=== PATIENT | male | born 1995 | race Caucasian/White ===

== ENCOUNTER 2020-08-11 17:35 | Outpatient (REF) | payer MEDICARE, MEDICAID, SELFPAY | END 2020-08-11 17:36 | disposition home or self-care (01) | LOC: HO.LAB 17:35 | PROVIDERS: Visit Provider Internal Medicine | DX: Z20.828 Contact with and (suspected) exposure to other viral communicable diseases (principal) | CPT/HCPCS: C9803; U0003 ==

== ENCOUNTER 2020-08-17 15:12 | Emergency (ER) | payer MEDICARE, MEDICAID, SELFPAY ==
--- NOTE | 2020-08-17 17:11 | PC.NURSE ---
TRAVIS FROM CARE TEAM SPOKE WITH PT IN THE WR AND PROVIDED HIM RESOURCES FOR THERAPIST
== END 2020-08-17 18:22 | disposition left against medical advice (07) ==
LOC: HO.ED 18:13
PROVIDERS: Emergency Provider Emergency Medicine
DX: F41.1 Generalized anxiety disorder (principal); F43.0 Acute stress reaction

== ENCOUNTER 2020-08-27 19:22 | Emergency (ER) | payer MEDICARE, MEDICAID, SELFPAY ==
[2020-08-27 20:00] VITALS: BP 142/66; PULSE 88; RESP 16; TEMP 36.6; O2SAT 99
[2020-08-27 21:35] VITALS: BP 115/67; PULSE 97; RESP 16; TEMP 37.3; O2SAT 97; BMI 24.3
--- NOTE | 2020-08-27 22:24 | ECG_ITS ---
Test Reason : CHEST PAIN Blood Pressure : / mmHG Vent. Rate : 108 BPM Atrial Rate : 108 BPM P-R Int : 114 ms QRS Dur : 080 ms QT Int : 310 ms P-R-T Axes : 070 040 056 degrees QTc Int : 415 ms Sinus tachycardia Otherwise normal ECG When compared with ECG of 07-MAR-2020 00:17, Vent. rate has increased BY 52 BPM Referred By: Lianna Rdz Electronically Signed By:Wang Ochoa
--- NOTE | 2020-08-27 22:25 | XR_ITS ---
EXAMINATION: XR CHEST CLINICAL INFORMATION: Shortness of breath COMPARISON: Chest x-ray 08/14/2012 TECHNIQUE: 2 views of the chest were obtained. 2235 hours FINDINGS: No significant abnormality is noted involving the heart, lungs, mediastinum, bony thorax or soft tissues. XR/XR chest 2V IMPRESSION: Unremarkable examination.
--- NOTE | 2020-08-27 22:31 | ED.GENADULT ---
HPI - General Adult General Chief complaint: General Medical Stated complaint: chest pain Time Seen by Provider: 08/27/20 22:24 Source: patient Mode of arrival: ambulatory Limitations: no limitations History of Present Illness HPI narrative: 25-year-old male with no significant past medical history presenting with chest pain and shortness of breath. Patient states he has had a stressful last 6 weeks, he tested positive for COVID in July recovered well and tested negative but he says he still has some residual affects and it feels like there is a weight on his chest and he has difficulty breathing when he lays down at night. He also states he feels his heart racing at times. Patient states his symptoms have become worse since smoking marijuana last evening. He also lost a family member recently and has not been eating much. Denies fevers cough nausea vomiting diarrhea. Related Data Previous Rx's Medication Instructions Recorded hydroxyzine HCl 25 mg PO BID PRN #14 tab 08/28/20 Allergies Allergy/AdvReac Type Severity Reaction Status Date / Time No Known Allergies Allergy Verified 08/27/20 21:34 [No Known Allergies*] Review of Systems Review of Systems: Yes all other systems are reviewed and are negative FOR[facility]LY [facility] Social History Social History Advance Directives: No Advance Directives Information Provided: No Physical Exam Vital Signs: Vital Signs: Last Vital Signs Temp 99.2 F 08/27/20 21:35 Pulse 97 08/27/20 21:35 Resp 16 08/27/20 21:35 BP 115/67 08/27/20 21:35 Pulse Ox 97 08/27/20 21:35 Body Mass Index 24.3 Const: General: cooperative, healthy appearing, comfortable, well developed and anxious Orientation/consciousness: patient oriented x3 Limitations: no limitations HENMT: Head: Yes normal to inspection Eyes: General: appearance normal, both eyes and all related structures Neck: Neck: Yes normal visual inspection and Yes full ROM Resp: Effort & Inspection: normal respiratory effort and able to speak in complete sentences Auscultation: clear to auscultation bilaterally Cardio: Rate: regular rate Rhythm: regular rhythm Heart sounds: normal S1 and S2 GI: Inspection: Yes normal to inspection Palpation (GI): Soft to palpation and nontender Skin: General skin exam: no rashes or lesions noted Neuro: General: patient oriented x3 Extrem: General: Yes normal to inspection Course Course Course Narrative: A 25-year-old male with no significant past medical history complaining of chest pain and shortness of breath. Upon my exam patient appears very anxious, having experienced a in his family recently. Will get EKG, troponin and basic labs as well as a chest x-ray. This is likely anxiety and depression but will rule out cardiac or pulmonary issues 1st. Gave pt ativan, he has a ride home and is not driving. 11:45pm labs unremarkable sands a slight bump in the WBC, chemistry within normal limits, troponin negative, EKG NSR. Likely stress, anxiety and depression. Pt's HR has come down, he appears much less anxious after the ativan. Discussed results with patient, likely anxiety, he will seek counseling and follow-up care with his PCP for anxiety and/or depression. Medical Decision Making Lab Data Result diagrams: 08/27/20 22:47 08/27/20 22:47 Labs: Lab Results 08/27/20 08/27/20 08/27/20 Range/Units 22:47 22:47 22:47 WBC 13.8 H (4.8-10.8) X10*3/uL RBC 5.54 (4.60-5.80) X10*6/uL Hgb 16.5 (14.0-18.0) g/dl Hct 47.1 (42-52) % MCV 85.0 (80-98) fL MCH 29.8 (27.0-33.0) pg MCHC 35.0 (31.0-36.0) g/dl RDW 12.0 (11.0-16.0) % Plt Count 241 (160-400) X10*3/uL MPV 11.2 (9.4-12.4) fL Immature Gran % (Auto) 0.2 (0.0-0.4) % Neut % (Auto) 71.8 (45-73) % Lymph % (Auto) 21.9 (20-40) % [place] % (Auto) 5.5 (2-11) % Eos % (Auto) 0.3 (0-4) % Baso % (Auto) 0.3 (0-2) % Lymph # (Auto) 3.0 (1.2-4.9) X10*3/uL [place] # (Auto) 0.8 (0.1-1.2) X10*3/uL Eos # (Auto) 0.0 (0.0-0.4) X10*3/uL Baso # (Auto) 0.0 (0.0-0.2) X10*3/uL Abs Immat Gran (auto) 0.03 (0.00-0.03) X10*3/uL Absolute Neuts (auto) 9.9 H (2.0-8.3) X10*3/uL Absolute Nucleated RBC 0.000 (0.0-0.012) X10*3/uL Nucleated RBC % (auto) 0.0 (0.0-0.2) /100WBC Sodium 140 (135-145) mmol/L Potassium 4.0 (3.3-5.1) mmol/l Chloride 105 (96-108) mmol/L Carbon Dioxide 24 (22-29) mmol/L Anion Gap 15 (12-20) BUN 17 H (9-16) mg/dL Creatinine 1.04 (0.5-1.4) mg/dL Estim Creat Clear Calc 86.6 Estimated GFR > 60 Random Glucose 112 (60-115) mg/dL Calcium 9.6 (8.4-10.2) mg/dL Troponin I High Sens < 3.5 (<3.5-35.0) ng/L Imaging Data Chest x-ray: Attestation: I personally reviewed and interpreted this imaging study as follows: Radiologist's impression: [place] [id number] XRay Report Signed Patient: Kin AlexandreMR#: [id number] : 1995Acct:[id number] Age/Sex: 25 / MADM Date: 08/27/20 Loc: [facility].ED Attending Dr: Ordering Physician: KIRA KAPLAN Date of Service: 08/27/20 Procedure(s): XR chest 2V Accession Number(s): [id number] cc: KIRA KAPLAN~ EXAMINATION: XR CHEST CLINICAL INFORMATION: Shortness of breath COMPARISON: Chest x-ray 08/14/2012 TECHNIQUE: 2 views of the chest were obtained. 2235 hours FINDINGS: No significant abnormality is noted involving the heart, lungs, mediastinum, bony thorax or soft tissues. XR/XR chest 2V IMPRESSION: Unremarkable examination. ECG Data Attestation: I personally reviewed and interpreted this ECG as follows: Prior ECG tracings: not available for review Interpretation: Sinus tach @108, no acute changes. Discharge Plan Discharge Clinical Impression: Anxiety Chest pain Qualifiers: Chest pain type: unspecified Qualified Code(s): R07.9 - Chest pain, unspecified Patient Disposition: Home, Self-Care Instructions: Anxiety (ED) Prescriptions: New hydroxyzine HCl 25 mg tablet 25 mg PO BID PRN (Reason: anxiety) Qty: 14 RF: 0 Referrals: Name,MD Ton [Primary Care Provider] - 2 days (Please be sure to follow-up with your doctor regarding how to manage your anxiety either with therapy medication or both.)
[2020-08-27] MEDS: LORazepam 2 MG/ML VIAL 1 MG IVPUSH (22:57)
[2020-08-27 22:59] LABS: MANUAL DIFF FLAG NO
[2020-08-27 23:00] LABS: Basophils Percent Auto 0.3 % (0-2); Eosinophils Percent Auto 0.3 % (0-4); Hematocrit 47.1 % (42-52); Hemoglobin 16.5 g/dl (14.0-18.0); Imm Gran Abs Auto 0.03 X10*3/uL (0.00-0.03); Imm Gran Pct Auto 0.2 % (0.0-0.4); Lymphocytes Percent Auto 21.9 % (20-40); Mean Corpuscular Hemoglobin 29.8 pg (27.0-33.0); Mean Platelet Volume 11.2 fL (9.4-12.4); Monocytes Absolute Auto 0.8 X10*3/uL (0.1-1.2); Monocytes Percent Auto 5.5 % (2-11); Neutrophils Absolute Auto 9.9 X10*3/uL (2.0-8.3); Neutrophils Percent Auto 71.8 % (45-73); Platelet Count 241 X10*3/uL (160-400); Red Blood Count 5.54 X10*6/uL (4.60-5.80); White Blood Count 13.8 X10*3/uL (4.8-10.8)
--- NOTE | 2020-08-27 23:01 | PC.NURSE ---
PT MEDICATED FOR ANXIETY.
--- NOTE | 2020-08-27 23:01 | PC.NURSE ---
PT ON MONITOR,
[2020-08-27 23:19] LABS: Anion Gap 15 (12-20); Blood Urea Nitrogen 17 mg/dL (9-16); Calcium 9.6 mg/dL (8.4-10.2); Carbon Dioxide 24 mmol/L (22-29); Chloride 105 mmol/L (96-108); Creatinine Clr Calc Pharmacy 86.6; Estimated Glomerular Filt Rate > 60; Glucose Random 112 mg/dL (60-115); Sodium 140 mmol/L (135-145)
[2020-08-27 23:27] LABS: Troponin-I High Sensitivity < 3.5 ng/L (<3.5-35.0)
--- NOTE | 2020-08-28 00:14 | PC.NURSE ---
PA IN ROOM FOR RE-EVAL. PT GETTING READY FOR DISCHARGE.
== END 2020-08-28 01:27 | disposition home or self-care (01) ==
PROVIDERS: Physician Assistant; Emergency Provider Internal Medicine; PCP Internal Medicine Geriatric Medicine
DX: R07.9 Chest pain, unspecified (principal); F41.1 Generalized anxiety disorder; F43.0 Acute stress reaction; Z79.899 Other long term (current) drug therapy
CPT/HCPCS: 36415; 71046; 80048; 84484; 85025; 93005; 96374; 99284; J2060

== ENCOUNTER 2020-10-05 22:17 | Emergency (ER) | payer MEDICARE, MEDICAID, SELFPAY ==
--- NOTE | ~2020-10-05 | CT_ITS ---
EXAMINATION: CT ABDOMEN AND PELVIS WITHOUT CONTRAST CLINICAL INFORMATION: Epigastric pain. Acute kidney injury COMPARISON: CT scan abdomen pelvis 03/11/2020, 03/04/2020 TECHNIQUE: Multidetector volumetric imaging was performed from the superior aspect of the liver through the pubic symphysis. Sagittal and coronal reformatted images were obtained on the technologist's workstation. This CT examination was performed using dose optimization techniques as appropriate, variously including the following: *Automated exposure control *Adjustment of mA and/or kV according to patient size (this includes techniques or standardized protocols for targeted exams where dose is matched to indication/reason for exam; i.e. extremities or head) *Use of iterative reconstruction technique DLP: 388 mGy-cm FINDINGS: LUNG BASES: The visualized lung bases are unremarkable. LIVER, GALLBLADDER, AND BILIARY TREE: The liver is normal in size, shape, and attenuation. No focal suspicious hepatic lesion or biliary ductal dilatation is present. There are several scattered subcentimeter hypodensities in the liver that are stable since prior study of 03/03/2020. The gallbladder is unremarkable with no evidence of radiopaque gallstones, gallbladder wall thickening, or obvious pericholecystic inflammatory changes. PANCREAS: Unremarkable. SPLEEN: Unremarkable. ADRENAL GLANDS: Unremarkable. KIDNEYS AND URETERS: The kidneys are normal in size, shape, and attenuation. No hydronephrosis, hydroureter, or calculi seen. No perinephric stranding. BLADDER: Unremarkable. GASTROINTESTINAL TRACT: There is no acute abnormality of the bowel. There is no bowel wall thickening /edema. There is no bowel obstruction. There is a moderate volume of stool in the colon. There is oral contrast mixed with stool in the large bowel. The appendix is normal . The small bowel loops are unremarkable. The stomach is normal. There is no hiatal hernia. ABDOMINAL WALL: No significant hernia is appreciated. LYMPH NODES: Normal. VASCULAR: Unremarkable. PELVIC VISCERA: Unremarkable. OSSEOUS STRUCTURES: Unremarkable. CT/CT abdomen pelvis wo con IMPRESSION: Normal CT scan abdomen and pelvis.
[2020-10-05 22:24] VITALS: BP 146/94; PULSE 100; RESP 18; TEMP 36.8; O2SAT 98; BMI 25.3
--- NOTE | 2020-10-05 23:19 | ED_ITS ---
HPI - Abdominal Pain General Chief Complaint: Abdominal Pain Stated Complaint: Abdominal Pain Time Seen by Provider: 10/05/20 22:20 Source: patient Mode of arrival: ambulatory History of Present Illness HPI narrative: This is a 25-year-old male who presents with epigastric pain that is burning/sharp, nonradiating, in nature since after taking a packet of ?Emergency?. This is not been associated with fevers, chills, nausea, vomi ting, or diarrhea. Yesterday, patient took Pepto-Bismol and is now presenting with 2 episodes of black stool and denies any urinary pain/burning/frequency. Patient denies NSAID use. Related Data Previous Rx's Medication Instructions Recorded hydroxyzine HCl 25 mg PO BID PRN #14 tab 08/28/20 omeprazole 40 mg PO DAILY 30 Days #30 cap 10/06/20 Allergies Allergy/AdvReac Type Severity Reaction Status Date / Time No Known Allergies Allergy Verified 08/27/20 21:34 [No Known Allergies*] Review of Systems Review of Systems Pertinent positives and negatives as stated in HPI 10 point review of systems is otherwise negative. Physical Exam Vital Signs: Vital Signs: Last Vital Signs Temp 97.9 F 10/06/20 04:00 Pulse 96 10/06/20 04:00 Resp 18 10/06/20 04:00 BP 126/67 10/06/20 04:00 Pulse Ox 98 10/06/20 04:00 Body Mass Index 25.3 VITAL SIGNS: Reviewed. GENERAL: Well developed, well nourished, in no acute distress. HEAD: Normocephalic/atraumatic, EYES: PERRLA, EOMI without pallor OROPHARYNX: no oral lesions noted, posterior pharynx clear NECK: Supple, no adenopathy LUNGS: Normal breath sounds. SpO2<98> CARDIOVASCULAR: Regular rate and rhythm without noted murmurs ABDOMEN: Soft, mild tenderness palpation epigastrium without rebound, non- distended with bowel sounds. ELIU: No evidence of external hemorrhoids, firm stool in the rectal vault without gross blood on finger but stool is black in nature, good rectal tone SKIN: Inspection of the skin reveals no rashes NEUROLOGIC: Alert and oriented x 4. Course Course Course Narrative: This is a 25-year-old male with history and clinical presentation most consistent gastritis and black stool suspected to be secondary to Pepto-Bismol use. Will rule out evidence of GI bleed, and treat for gastritis. Review of all investigations negative for any acute findings other than an LEON w hich was treated here in the emergency department with 2 L of fluid in re- evaluation with the BMP. Repeat lab work showed trending improvement and on repeat discussion with patient he states only meds he takes is sertraline, trazodone, and herbal tea. Review of basic metabolic panel shows significant improvement in renal function and patient was discharged in stable condition with instructions to follow-up with his primary care provider. MDM - Abdominal Pain Lab Data Result diagrams: 10/05/20 23:33 10/06/20 03:45 Labs: Lab Results 10/05/20 10/05/20 10/05/20 Range/Units 23:31 23:33 23:33 WBC 12.9 H (4.8-10.8) X10*3/uL RBC 5.35 (4.60-5.80) X10*6/uL Hgb 15.9 (14.0-18.0) g/dl Hct 45.7 (42-52) % MCV 85.4 (80-98) fL MCH 29.7 (27.0-33.0) pg MCHC 34.8 (31.0-36.0) g/dl RDW 12.5 (11.0-16.0) % Plt Count 229 (160-400) X10*3/uL MPV 10.9 (9.4-12.4) fL Immature Gran % (Auto) 0.2 (0.0-0.4) % Neut % (Auto) 57.8 (45-73) % Lymph % (Auto) 31.8 (20-40) % [place] % (Auto) 8.8 (2-11) % Eos % (Auto) 1.0 (0-4) % Baso % (Auto) 0.4 (0-2) % Lymph # (Auto) 4.1 (1.2-4.9) X10*3/uL [place] # (Auto) 1.1 (0.1-1.2) X10*3/uL Eos # (Auto) 0.1 (0.0-0.4) X10*3/uL Baso # (Auto) 0.1 (0.0-0.2) X10*3/uL Abs Immat Gran (auto) 0.03 (0.00-0.03) X10*3/uL Absolute Neuts (auto) 7.5 (2.0-8.3) X10*3/uL Absolute Nucleated RBC 0.000 (0.0-0.012) X10*3/uL Nucleated RBC % (auto) 0.0 (0.0-0.2) /100WBC Sodium 136 (135-145) mmol/L Potassium 4.0 (3.3-5.1) mmol/L Chloride 101 (96-108) mmol/L Carbon Dioxide 25 (22-29) mmol/L Anion Gap 14 (12-20) BUN 29 H D (9-16) mg/dL Creatinine 1.48 H (0.5-1.4) mg/dL Estim Creat Clear Calc 60.8 Estimated GFR 57 Random Glucose 82 (60-115) mg/dL Calcium 9.5 (8.4-10.2) mg/dL Total Bilirubin 0.7 (0.0-1.0) mg/dL AST 22 (5-37) U/L ALT 30 (0-40) U/L Alkaline Phosphatase 78 (39-117) U/L B-Natriuretic Peptide (<100) pg/mL Total Protein 6.9 (6.5-8.0) g/dL Albumin 4.6 (3.5-5.0) g/dL Lipase 34 (8-78) U/L Urine Color Urine Appearance Urine pH (5.0-8.0) Ur Specific [place] (1.005-1.025) Urine Protein (NEG-TRACE) MG/DL Urine Glucose (UA) (NEG) MG/DL Urine Ketones (NEG) MG/DL Urine Blood (NEG) Urine Nitrite (NEG) Ur Leukocyte Esterase (NEG) Stool Occult Blood NEG (NEG) Urine Opiates Screen (Not Detect) Ur Barbiturates Screen (Not Detect) Ur Phencyclidine Scrn (Not Detect) Ur Amphetamines Screen (Not Detect) U Benzodiazepines Scrn (Not Detect) Urine Cocaine Screen (Not Detect) U Marijuana (THC) Screen (Not Detect) 10/06/20 10/06/20 10/06/20 Range/Units 00:40 00:40 03:03 WBC (4.8-10.8) X10*3/uL RBC (4.60-5.80) X10*6/uL Hgb (14.0-18.0) g/dl Hct (42-52) % MCV (80-98) fL MCH (27.0-33.0) pg MCHC (31.0-36.0) g/dl RDW (11.0-16.0) % Plt Count (160-400) X10*3/uL MPV (9.4-12.4) fL Immature Gran % (Auto) (0.0-0.4) % Neut % (Auto) (45-73) % Lymph % (Auto) (20-40) % [place] % (Auto) (2-11) % Eos % (Auto) (0-4) % Baso % (Auto) (0-2) % Lymph # (Auto) (1.2-4.9) X10*3/uL [place] # (Auto) (0.1-1.2) X10*3/uL Eos # (Auto) (0.0-0.4) X10*3/uL Baso # (Auto) (0.0-0.2) X10*3/uL Abs Immat Gran (auto) (0.00-0.03) X10*3/uL Absolute Neuts (auto) (2.0-8.3) X10*3/uL Absolute Nucleated RBC (0.0-0.012) X10*3/uL Nucleated RBC % (auto) (0.0-0.2) /100WBC Sodium (135-145) mmol/L Potassium (3.3-5.1) mmol/L Chloride (96-108) mmol/L Carbon Dioxide (22-29) mmol/L Anion Gap (12-20) BUN (9-16) mg/dL Creatinine (0.5-1.4) mg/dL Estim Creat Clear Calc Estimated GFR Random Glucose (60-115) mg/dL Calcium (8.4-10.2) mg/dL Total Bilirubin (0.0-1.0) mg/dL AST (5-37) U/L ALT (0-40) U/L Alkaline Phosphatase (39-117) U/L B-Natriuretic Peptide < 10 (<100) pg/mL Total Protein (6.5-8.0) g/dL Albumin (3.5-5.0) g/dL Lipase (8-78) U/L Urine Color YELLOW Urine Appearance CLEAR Urine pH 6.5 (5.0-8.0) Ur Specific [place] 1.020 (1.005-1.025) Urine Protein NEG (NEG-TRACE) MG/DL Urine Glucose (UA) NEG (NEG) MG/DL Urine Ketones NEG (NEG) MG/DL Urine Blood NEG (NEG) Urine Nitrite NEG (NEG) Ur Leukocyte Esterase NEG (NEG) Stool Occult Blood (NEG) Urine Opiates Screen Not Detected (Not Detect) Ur Barbiturates Screen Not Detected (Not Detect) Ur Phencyclidine Scrn Not Detected (Not Detect) Ur Amphetamines Screen Not Detected (Not Detect) U Benzodiazepines Scrn Not Detected (Not Detect) Urine Cocaine Screen Not Detected (Not Detect) U Marijuana (THC) Screen Not Detected (Not Detect) 10/06/20 Range/Units 03:45 WBC (4.8-10.8) X10*3/uL RBC (4.60-5.80) X10*6/uL Hgb (14.0-18.0) g/dl Hct (42-52) % MCV (80-98) fL MCH (27.0-33.0) pg MCHC (31.0-36.0) g/dl RDW (11.0-16.0) % Plt Count (160-400) X10*3/uL MPV (9.4-12.4) fL Immature Gran % (Auto) (0.0-0.4) % Neut % (Auto) (45-73) % Lymph % (Auto) (20-40) % [place] % (Auto) (2-11) % Eos % (Auto) (0-4) % Baso % (Auto) (0-2) % Lymph # (Auto) (1.2-4.9) X10*3/uL [place] # (Auto) (0.1-1.2) X10*3/uL Eos # (Auto) (0.0-0.4) X10*3/uL Baso # (Auto) (0.0-0.2) X10*3/uL Abs Immat Gran (auto) (0.00-0.03) X10*3/uL Absolute Neuts (auto) (2.0-8.3) X10*3/uL Absolute Nucleated RBC (0.0-0.012) X10*3/uL Nucleated RBC % (auto) (0.0-0.2) /100WBC Sodium 142 (135-145) mmol/L Potassium 3.6 (3.3-5.1) mmol/L Chloride 115 H (96-108) mmol/L Carbon Dioxide 21 L (22-29) mmol/L Anion Gap 10 L (12-20) BUN 20 H (9-16) mg/dL Creatinine 0.89 (0.5-1.4) mg/dL Estim Creat Clear Calc 101.2 Estimated GFR > 60 Random Glucose 80 (60-115) mg/dL Calcium 7.0 L D (8.4-10.2) mg/dL Total Bilirubin (0.0-1.0) mg/dL AST (5-37) U/L ALT (0-40) U/L Alkaline Phosphatase (39-117) U/L B-Natriuretic Peptide (<100) pg/mL Total Protein (6.5-8.0) g/dL Albumin (3.5-5.0) g/dL Lipase (8-78) U/L Urine Color Urine Appearance Urine pH (5.0-8.0) Ur Specific [place] (1.005-1.025) Urine Protein (NEG-TRACE) MG/DL Urine Glucose (UA) (NEG) MG/DL Urine Ketones (NEG) MG/DL Urine Blood (NEG) Urine Nitrite (NEG) Ur Leukocyte Esterase (NEG) Stool Occult Blood (NEG) Urine Opiates Screen (Not Detect) Ur Barbiturates Screen (Not Detect) Ur Phencyclidine Scrn (Not Detect) Ur Amphetamines Screen (Not Detect) U Benzodiazepines Scrn (Not Detect) Urine Cocaine Screen (Not Detect) U Marijuana (THC) Screen (Not Detect) Discharge Plan Discharge Clinical Impression: LEON (acute kidney injury) Gastritis Qualifiers: Gastritis type: unspecified gastritis Chronicity: acute Gastritis bleeding: without bleeding Qualified Code(s): K29.00 - Acute gastritis without bleeding Patient Disposition: Home, Self-Care Instructions: Gastritis (ED), Acute Kidney Injury (DC), Diet for Stomach Ulcers and Gastritis (ED) Additional Instructions: 1. Increase her fluid hydration especially with water. 2. Resume all home medications as prescribed. 3. You have been provided with a prescription for an antacid that you should take as prescribed. Prescriptions: New omeprazole 40 mg capsule,delayed release(DR/EC) 40 mg PO DAILY 30 Days Qty: 30 RF: 0 No Action hydroxyzine HCl 25 mg tablet 25 mg PO BID PRN (Reason: anxiety) Qty: 14 RF: 0 Referrals: Lauren,MD Ton [Primary Care Provider] - 2 days (For evaluation and management for gastritis and noted to have acute kidney injury of unclear etiology that improved after fluid hydration in the emergency department. Would benefit from repeat basic metabolic panel.) [facility] Past Medical History Source: nursing notes reviewed Social History Social History Advance Directives: No Advance Directives Information Provided: No
[2020-10-05 23:38] LABS: Basophils Absolute Auto 0.1 X10*3/uL (0.0-0.2); Basophils Percent Auto 0.4 % (0-2); Eosinophils Absolute Auto 0.1 X10*3/uL (0.0-0.4); Hematocrit 45.7 % (42-52); Hemoglobin 15.9 g/dl (14.0-18.0); Imm Gran Abs Auto 0.03 X10*3/uL (0.00-0.03); Imm Gran Pct Auto 0.2 % (0.0-0.4); Lymphocytes Absolute Auto 4.1 X10*3/uL (1.2-4.9); Lymphocytes Percent Auto 31.8 % (20-40); Mean Corpuscular HGB Conc 34.8 g/dl (31.0-36.0); Mean Corpuscular Hemoglobin 29.7 pg (27.0-33.0); Mean Corpuscular Volume 85.4 fL (80-98); Mean Platelet Volume 10.9 fL (9.4-12.4); Monocytes Absolute Auto 1.1 X10*3/uL (0.1-1.2); Monocytes Percent Auto 8.8 % (2-11); Neutrophils Absolute Auto 7.5 X10*3/uL (2.0-8.3); Neutrophils Percent Auto 57.8 % (45-73); Platelet Count 229 X10*3/uL (160-400); Red Blood Count 5.35 X10*6/uL (4.60-5.80); Red Cell Distribution Width 12.5 % (11.0-16.0); White Blood Count 12.9 X10*3/uL (4.8-10.8)
[2020-10-05 23:38] LABS: OBS Int Ctl Valid YES; OBS1 NEG (NEG)
[2020-10-05 23:39] LABS: MANUAL DIFF FLAG NO
[2020-10-05] MEDS: Lidocaine HCl Viscous 2 % 15 ML SOLUTION 10 ML MUCOUS MEM (23:42)
[2020-10-05] MEDS: Magnesium Hydrox/Alum Hydrox 30 ML ORAL.SUSP PO (23:42)
--- NOTE | 2020-10-05 23:45 | PC.NURSE ---
Patient attempting to provide urine specimen at this time. Labs drawn and sent for analysis. Awaiting results. Will continue to monitor.
[2020-10-06] VITALS: BP 134/69; PULSE 81; RESP 18; TEMP 36.7; O2SAT 99
[2020-10-06 00:02] LABS: Carbon Dioxide 25 mmol/L (22-29); Chloride 101 mmol/L (96-108); Sodium 136 mmol/L (135-145)
[2020-10-06 00:03] LABS: Alanine Aminotransferase 30 U/L (0-40); Albumin Level 4.6 g/dL (3.5-5.0); Alkaline Phosphatase 78 U/L (39-117); Anion Gap 14 (12-20); Aspartate Amino Transferase 22 U/L (5-37); Bilirubin Total 0.7 mg/dL (0.0-1.0); Blood Urea Nitrogen 29 mg/dL (9-16); Calcium 9.5 mg/dL (8.4-10.2); Creatinine Clr Calc Pharmacy 60.8; Estimated Glomerular Filt Rate 57; Glucose Random 82 mg/dL (60-115); Lipase 34 U/L (8-78); Total Protein 6.9 g/dL (6.5-8.0)
[2020-10-06 00:49] LABS: Glucose Urine UA NEG (NEG); Leukocyte Esterase Urine NEG (NEG); Nitrite Urine NEG (NEG); PH 6.5 (5.0-8.0); Urine Blood NEG (NEG); Urine Ketones NEG (NEG); Urine Protein NEG (NEG-TRACE)
[2020-10-06 00:50] LABS: Appearance Urine CLEAR; Color Urine YELLOW; UACC Culture Trigger NO
[2020-10-06 01:16] LABS: Amphetamine Screen Urine Not Detected (Not Detect); Barbiturates, Urine Not Detected (Not Detect); Benzodiazepines Screen Urine Not Detected (Not Detect); Cannabinoid Screen Urine Not Detected (Not Detect); Cocaine Screen Urine Not Detected (Not Detect); Opiate Screen Urine Not Detected (Not Detect); Phencyclidine Screen Urine Not Detected (Not Detect)
[2020-10-06 02:00] VITALS: BP 130/69; PULSE 78; RESP 18; TEMP 36.6; O2SAT 98
[2020-10-06] MEDS: 0.9 % Sodium Chloride 2,000 ML 999 ML IV (02:14)
[2020-10-06 03:32] LABS: B Type Natriuretic Peptide < 10 pg/mL (<100)
[2020-10-06 04:00] VITALS: BP 126/67; PULSE 96; RESP 18; TEMP 36.6; O2SAT 98
[2020-10-06 04:28] LABS: Anion Gap 10 (12-20); Blood Urea Nitrogen 20 mg/dL (9-16); Carbon Dioxide 21 mmol/L (22-29); Chloride 115 mmol/L (96-108); Creatinine Clr Calc Pharmacy 101.2; Estimated Glomerular Filt Rate > 60; Glucose Random 80 mg/dL (60-115); Potassium 3.6 mmol/L (3.3-5.1); Sodium 142 mmol/L (135-145)
== END 2020-10-06 04:56 | disposition home or self-care (01) ==
PROVIDERS: Emergency Provider Student in an Organized Health Care Education/Training Program; PCP Internal Medicine Geriatric Medicine
DX: K29.00 Acute gastritis without bleeding (principal); R10.13 Epigastric pain; Z79.899 Other long term (current) drug therapy
CPT/HCPCS: 36415; 74176; 80048; 80053; 80307; 81003; 82272; 83690; 83880; 85025; 96360; 96361; 99284

== ENCOUNTER 2020-10-08 13:03 | Outpatient (REF) | payer MEDICARE, MEDICAID, SELFPAY ==
--- NOTE | ~2020-10-08 | US_ITS ---
EXAMINATION: US SCROTUM CLINICAL INFORMATION: Scrotal pain. COMPARISON: None TECHNIQUE: A sonogram of the scrotum was performed assessing pineda-scale appearance and color Doppler flow. Spectral Doppler analysis of the arterial and venous flow were performed in the testes bilaterally. FINDINGS: RIGHT: Right testicle measures 3.7 x 2.0 x 2.7 cm, volume 10.4 mL. No focal testicular parenchymal lesions are visualized. Spectral Doppler analysis of the arterial and venous flow is normal in the right testis. Right epididymal head is normal in size. No right varicocele is seen. There is a small right hydrocele. Right epididymal Doppler flow is normal. LEFT: Left testicle measures 3.5 x 2.0 x 2.8 cm, volume 10.3 mL. No focal testicular parenchymal lesions are visualized. Spectral Doppler analysis of the arterial and venous flow is normal in the left testis. Left epididymal head is normal in size. Left epididymal Doppler flow is normal. There is a small left hydrocele. There is a small left varicocele. US/US scrotum IMPRESSION: Small bilateral hydroceles. Small left varicocele.
== END 2020-10-08 13:04 | disposition home or self-care (01) ==
LOC: HO.US 13:03
PROVIDERS: Visit Provider Emergency Medicine
DX: N50.82 Scrotal pain (principal)
CPT/HCPCS: 76870

== ENCOUNTER 2021-02-24 14:41 | Outpatient (REF) | payer MEDICARE, MEDICAID, SELFPAY ==
--- NOTE | ~2021-02-24 | XR_ITS ---
EXAMINATION: XR SHOULDER, LEFT CLINICAL INFORMATION: Pain left shoulder COMPARISON: X-ray the left shoulder May 2016 TECHNIQUE: AP external rotation, Grashey, scapular Y, and axillary views of the left shoulder. FINDINGS: The bones and soft tissues are normal. No fracture. Glenohumeral and acromioclavicular alignment is anatomic with normal joint space. No abnormal soft tissue calcifications. XR/XR shoulder LT min 2V IMPRESSION: Normal left shoulder.
== END 2021-02-24 14:42 | disposition home or self-care (01) ==
LOC: HO.XRAY 14:41
PROVIDERS: PCP Internal Medicine Geriatric Medicine; Visit Provider Emergency Medicine
DX: M25.512 Pain in left shoulder (principal)
CPT/HCPCS: 73030

== ENCOUNTER 2021-04-22 12:00 | Outpatient (RCR) | payer MEDICARE, MEDICAID, SELFPAY | END 2021-05-05 08:50 | disposition home or self-care (01) | LOC: HO.PT 12:00 | PROVIDERS: PCP Internal Medicine Geriatric Medicine; Visit Provider Emergency Medicine | DX: M25.512 Pain in left shoulder (principal) | CPT/HCPCS: 97110; 97112; 97161; 97530 ==

== ENCOUNTER 2021-11-06 15:57 | Outpatient (REF) | payer MEDICARE, MEDICAID, SELFPAY ==
--- NOTE | ~2021-11-06 | US_ITS ---
EXAMINATION: US SCROTUM CLINICAL INFORMATION: Left testicular pain. COMPARISON: Ultrasound scrotum 10/08/2020. TECHNIQUE: A sonogram of the scrotum was performed assessing pineda-scale appearance and color Doppler flow. Spectral Doppler analysis of the arterial and venous flow were performed in the testes bilaterally. FINDINGS: RIGHT: Right testicle measures 3.7 x 2.0 x 2.9 cm, volume 10.7 mL. No focal testicular parenchymal lesions are visualized. Spectral Doppler analysis of the arterial and venous flow is normal in the right testis. Right epididymal head is normal in size. No right hydrocele or varicocele is seen. Right epididymal Doppler flow is normal. LEFT: Left testicle measures 3.6 x 2.0 x 2.4 cm, volume 9.1 mL. No focal testicular parenchymal lesions are visualized. Spectral Doppler analysis of the arterial and venous flow is normal in the left testis. There is a left testicular appendix visualized. Left epididymal head is normal in size. No left hydrocele or varicocele is seen. Left epididymal Doppler flow is normal. US/US scrotum IMPRESSION: Unremarkable left ultrasound of the scrotum except for incidental finding of a left testicular appendix.
== END 2021-11-06 15:58 | disposition home or self-care (01) ==
LOC: HO.US 15:57
PROVIDERS: PCP Internal Medicine Geriatric Medicine; Visit Provider Family Medicine
DX: N50.812 Left testicular pain (principal)
CPT/HCPCS: 76870

== ENCOUNTER → 2022-01-07 08:47 | Outpatient (BNVA) | payer MEDICARE, MEDICAID, SELFPAY | PROVIDERS: PCP Internal Medicine Geriatric Medicine; Visit Provider Urology | DX: N45.1 Epididymitis (principal) | CPT/HCPCS: 99202 ==

== ENCOUNTER 2022-12-02 16:53 | Emergency (ER) | payer OTHER, MEDICAID, SELFPAY ==
--- NOTE | 2022-12-02 17:02 | ED.ABDPAIN ---
HPI - Abdominal Pain General Chief Complaint: Abdominal Pain <Cele Sandy NP - Last Filed: 12/02/22 17:06> Stated Complaint: Abd Pain <Cele Sandy NP - Last Filed: 12/02/22 17:06> Time Seen by Provider: 12/02/22 17:12 <Cele Sandy NP - Last Filed: 12/02/22 17:06> Source: patient <VICKY Jaramillo - Last Filed: 12/02/22 18:58> Mode of arrival: ambulatory <VICKY Jaramillo - Last Filed: 12/02/22 18:58> Limitations: no limitations <VICKY Jaramillo Last Filed: 12/02/22 18:58> History of Present Illness HPI narrative: Patient is a 27yo male with history of anxiety and depression for which he is not currently taking medications, presenting for abdominal burning which he stated started 1 week ago. Patient stated that he had sexual intercourse with a new partner and 6 hours after he developed a deep abdominal burning in his left lower quadrant which spread throughout his abdomen which the patient described as feels like my intestines are on fire . Patient stated that the burning sensation has been constant but fluctuates in intensity. Patient also stated that he has observed bruises on his body with no known cause, rashes appearing on his face, and chills. Patient stated he had similar symptoms as well as an episode of muscle weakness and SOB last year following sexual intercourse with new partners and was evaluated by his PCP who, according to the patient, stated it's all in your head . Patient denies previous STD testing. He endorsed nausea but denies fever, dizziness, headache, chest pain, vomiting, diarrhea, genital rashes or ulcers, hematuria, urinary retention or incontinence. Patient denies anything that exacerbates or relieves symptoms. <VICKY Jaramillo - Last Filed: 12/02/22 18:58> MD elicited complaint: abdominal pain <VICKY Jaramillo - Last Filed: 12/02/22 18:58> Pertinent past history: other (anxiety, depression) <VICKY Jaramillo Last Filed: 12/02/22 18:58> Onset (ago): day(s) (6) <VICKY Jaramillo - Last Filed: 12/02/22 18:58> Pain Consistency: constant <VICKY Jaramillo Last Filed: 12/02/22 18:58> Location: suprapubic <VICKY Jaramillo Last Filed: 12/02/22 18:58> Exacerbating factors: nothing <VICKY Jaramillo Last Filed: 12/02/22 18:58> Relieving factors: nothing <VICKY Jaramillo Last Filed: 12/02/22 18:58> Context: history of similar episodes <VICKY Jaramillo Last Filed: 12/02/22 18:58> Associated symptoms: nausea and chills <VICKY Jaramillo Last Filed: 12/02/22 18:58> Related Data Home Medications: Home Medications Medication Instructions Recorded Confirmed clindamycin phosphate 1 % lotion topical BID 01/07/22 doxycycline hyclate 100 mg tablet 100 mg PO BID 01/07/22 sertraline 25 mg tablet 25 mg PO DAILY 01/07/22 sertraline 50 mg tablet 50 mg PO DAILY 01/07/22 trazodone 100 mg tablet 100 mg PO BEDTIME 01/07/22 trazodone 50 mg tablet 50 mg PO BEDTIME 01/07/22 Previous Rx's Medication Instructions Recorded hydroxyzine HCl 25 mg tablet 25 mg PO BID PRN anxiety #14 tabs 08/28/20 omeprazole 40 mg capsule,delayed 40 mg PO DAILY 30 days #30 caps 10/06/20 release doxycycline hyclate 100 mg tablet 100 mg PO BID #14 tabs 12/02/22 <MARYSE Bañuelos Last Filed: 12/02/22 17:06> Allergies/Adverse Reactions: Allergies Allergy/AdvReac Type Severity Reaction Status Date / Time No Known Allergies Allergy Verified 12/02/22 17:03 [No Known Allergies*] <MARYSE Bañuelos Last Filed: 12/02/22 17:06> Review of Systems Review of Systems Yes all other systems are reviewed and are negative <VICKY Jaramillo Last Filed: 12/02/22 18:58> PMFSH Past Medical History Medical History: Medical History Anxiety Depression Hip abductor tendonitis <Cele Sandy NP - Last Filed: 12/02/22 17:06> Social History Social History: Social History Alcohol intake: never Advance Directives: No Advance Directives Information Provided: No <Cele Sandy NP - Last Filed: 12/02/22 17:06> Physical Exam ED Vital Signs: Vital Signs - 24 hr 12/02/22 17:03 Temperature 98.9 F Pulse Rate 99 Respiratory Rate 18 Blood Pressure 142/86 H Pulse Oximetry 100 Oxygen Delivery Method Room Air BMI result Body Mass Index 23.0 <Cele Sandy NP - Last Filed: 12/02/22 17:06> Vital Signs - 24 hr 12/02/22 17:03 Temperature 98.9 F Pulse Rate 99 Respiratory Rate 18 Blood Pressure 142/86 H Pulse Oximetry 100 Oxygen Delivery Method Room Air BMI result Body Mass Index 23.0 Appearance: Alert. Oriented X3. No acute distress. Head: normocephalic, atraumatic. Eyes: Pupils equal, round and reactive to light. ENT: Pharynx normal. No tonsillar swelling or exudate. Neck: Normal inspection. Neck supple. CVS: Normal heart rhythm with tachycardia. Pulses normal. Respiratory: No respiratory distress. Breath sounds normal. Abdomen: Soft with mild suprapubic tenderness. +BS x4 Skin: Skin warm and dry. Normal skin color. Normal skin turgor. No rashes. 2 minor bruises on patients right ventral forearm Extremities: No lower extremity edema. No joint swelling. Neuro/psych: Oriented X 3. No motor deficit. No sensory deficit. Normal speech and cognition. <VICKY Jaramillo - Last Filed: 12/02/22 18:58> Course Course Course Narrative: This is a rapid medical exam. Deferred additional HPI, ROS, and PE to primary provider. 27 yo male healthy here with complaints of generalized abdominal pain, fever, flu like symptoms x 1 week. Patient believes these symptoms began after having sexual intercourse with a new sexual partner. Denies urinary symptoms, penile discharge, urinary symptoms or testicular pain. Will obtain labs, UA, CT NG and testing for flu/covid/rsv. VSS <Cele Sandy NP - Last Filed: 12/02/22 17:06> Medical Decision Making Medical Decision Making [facility] Narrative: Patient is a 27yo male with history of anxiety and depression not currently taking medications, presenting for multiple symptoms which do not appear related. Physical exam is benign. Patient labs were unremarkable. UA unremarkable. Patient was offered STD treatment and given referral for STD testing. Patient was counseled on the need to take medication as directed. Patient was informed to follow up with his primary care and return to the ER if his symptoms worsen or he develops any fever, chest pain, SOB, weakness, fatigue, syncope, or near syncope. <VICKY Jaramillo - Last Filed: 12/02/22 18:58> Differential Diagnosis Differential Diagnoses: The differential diagnosis associated with the presentation includes <VICKY Jaramillo - Last Filed: 12/02/22 18:58> somaticism, acute anxiety, illness anxiety disorder, CTNG, UTI, doubt HIV <VICKY Jaramillo - Last Filed: 12/02/22 18:58> Lab Data [facility] Lab Attestation statement: I reviewed the patient's lab results. <VICKY Jaramillo - Last Filed: 12/02/22 18:58> chronic leukocytosis upon review of prior labs <VICKY Jaramillo - Last Filed: 12/02/22 18:58> Result Diagrams: 12/02/22 17:12 12/02/22 17:12 <Cele Sandy NP - Last Filed: 12/02/22 17:06> Labs: Lab Results 12/02/22 12/02/22 12/02/22 Range/Units 17:12 17:12 17:12 WBC 13.9 H (4.8-10.8) X10*3/uL RBC 5.79 (4.60-5.80) X10*6/uL Hgb 16.6 (14.0-18.0) g/dl Hct 47.9 (42.0-52.0) % MCV 82.7 (80.0-98.0) fL MCH 28.7 (27.0-33.0) pg MCHC 34.7 (31.0-36.0) g/dl RDW 12.2 (11.0-16.0) % Plt Count 302 (160-400) X10*3/uL MPV 10.6 (9.4-12.4) fL Immature Gran % (Auto) 0.3 (0.0-0.4) % Neut % (Auto) 59.6 (45-73) % Lymph % (Auto) 31.3 (20-40) % [place] % (Auto) 7.3 (2-11) % Eos % (Auto) 1.1 (0-4) % Baso % (Auto) 0.4 (0-2) % Lymph # (Auto) 4.4 (1.2-4.9) X10*3/uL [place] # (Auto) 1.0 (0.1-1.2) X10*3/uL Eos # (Auto) 0.2 (0.0-0.4) X10*3/uL Baso # (Auto) 0.1 (0.0-0.2) X10*3/uL Abs Immat Gran (auto) 0.04 H (0.00-0.03) X10*3/uL Absolute Neuts (auto) 8.3 (2.0-8.3) x10*3/uL Absolute Nucleated RBC 0.000 (0.0-0.012) X10*3/uL Nucleated RBC % (auto) 0.0 (0.0-0.2) /100WBC Sodium 140 (135-145) mmol/L Potassium 4.2 (3.3-5.1) mmol/L Chloride 109 H (96-108) mmol/L Carbon Dioxide 23 (22-29) mmol/L Anion Gap 12 (12-20) BUN 18 H (9-16) mg/dL Creatinine 1.15 (0.5-1.4) mg/dL Estim Creat Clear Calc 76.9 Estimated GFR > 60 Random Glucose 121 H (60-115) mg/dL Calcium 10.1 D (8.4-10.2) mg/dL Total Bilirubin 0.6 (0.0-1.0) mg/dL Direct Bilirubin 0.1 (0.0-0.5) mg/dL AST 18 (5-37) U/L ALT 23 (0-40) U/L Alkaline Phosphatase 86 (39-117) U/L Total Protein 7.4 (6.5-8.0) g/dL Albumin 5.1 H (3.5-5.0) g/dL Lipase 26 (8-78) U/L Urine Color Urine Appearance Urine pH (5.0-9.0) Ur Specific [place] (1.005-1.025) Urine Protein (Neg-Trace) mg/dL Urine Glucose (UA) (Negative) mg/dL Urine Ketones (Negative) mg/dL Urine Blood (Negative) Urine Nitrite (Negative) Ur Leukocyte Esterase (Negative) Influenza Type A (PCR) NEGATIVE (Negative) Influenza Type B (PCR) NEGATIVE (Negative) RSV RNA Qual (PCR) NEGATIVE (Negative) SARS-CoV-2 RNA (RT-PCR) NEGATIVE (Negative) 12/02/22 Range/Units 17:40 WBC (4.8-10.8) X10*3/uL RBC (4.60-5.80) X10*6/uL Hgb (14.0-18.0) g/dl Hct (42.0-52.0) % MCV (80.0-98.0) fL MCH (27.0-33.0) pg MCHC (31.0-36.0) g/dl RDW (11.0-16.0) % Plt Count (160-400) X10*3/uL MPV (9.4-12.4) fL Immature Gran % (Auto) (0.0-0.4) % Neut % (Auto) (45-73) % Lymph % (Auto) (20-40) % [place] % (Auto) (2-11) % Eos % (Auto) (0-4) % Baso % (Auto) (0-2) % Lymph # (Auto) (1.2-4.9) X10*3/uL [place] # (Auto) (0.1-1.2) X10*3/uL Eos # (Auto) (0.0-0.4) X10*3/uL Baso # (Auto) (0.0-0.2) X10*3/uL Abs Immat Gran (auto) (0.00-0.03) X10*3/uL Absolute Neuts (auto) (2.0-8.3) x10*3/uL Absolute Nucleated RBC (0.0-0.012) X10*3/uL Nucleated RBC % (auto) (0.0-0.2) /100WBC Sodium (135-145) mmol/L Potassium (3.3-5.1) mmol/L Chloride (96-108) mmol/L Carbon Dioxide (22-29) mmol/L Anion Gap (12-20) BUN (9-16) mg/dL Creatinine (0.5-1.4) mg/dL Estim Creat Clear Calc Estimated GFR Random Glucose (60-115) mg/dL Calcium (8.4-10.2) mg/dL Total Bilirubin (0.0-1.0) mg/dL Direct Bilirubin (0.0-0.5) mg/dL AST (5-37) U/L ALT (0-40) U/L Alkaline Phosphatase (39-117) U/L Total Protein (6.5-8.0) g/dL Albumin (3.5-5.0) g/dL Lipase (8-78) U/L Urine Color Yellow Urine Appearance Clear Urine pH 7.5 (5.0-9.0) Ur Specific [place] 1.025 (1.005-1.025) Urine Protein Trace (Neg-Trace) mg/dL Urine Glucose (UA) Negative (Negative) mg/dL Urine Ketones Negative (Negative) mg/dL Urine Blood Negative (Negative) Urine Nitrite Negative (Negative) Ur Leukocyte Esterase Negative (Negative) Influenza Type A (PCR) (Negative) Influenza Type B (PCR) (Negative) RSV RNA Qual (PCR) (Negative) SARS-CoV-2 RNA (RT-PCR) (Negative) <Cele Sandy, BREAKFAST BAR ATTENDANT - Last Filed: 12/02/22 17:06> Lab Results 12/02/22 12/02/22 12/02/22 Range/Units 17:12 17:12 17:12 WBC 13.9 H (4.8-10.8) X10*3/uL RBC 5.79 (4.60-5.80) X10*6/uL Hgb 16.6 (14.0-18.0) g/dl Hct 47.9 (42.0-52.0) % MCV 82.7 (80.0-98.0) fL MCH 28.7 (27.0-33.0) pg MCHC 34.7 (31.0-36.0) g/dl RDW 12.2 (11.0-16.0) % Plt Count 302 (160-400) X10*3/uL MPV 10.6 (9.4-12.4) fL Immature Gran % (Auto) 0.3 (0.0-0.4) % Neut % (Auto) 59.6 (45-73) % Lymph % (Auto) 31.3 (20-40) % [place] % (Auto) 7.3 (2-11) % Eos % (Auto) 1.1 (0-4) % Baso % (Auto) 0.4 (0-2) % Lymph # (Auto) 4.4 (1.2-4.9) X10*3/uL [place] # (Auto) 1.0 (0.1-1.2) X10*3/uL Eos # (Auto) 0.2 (0.0-0.4) X10*3/uL Baso # (Auto) 0.1 (0.0-0.2) X10*3/uL Abs Immat Gran (auto) 0.04 H (0.00-0.03) X10*3/uL Absolute Neuts (auto) 8.3 (2.0-8.3) x10*3/uL Absolute Nucleated RBC 0.000 (0.0-0.012) X10*3/uL Nucleated RBC % (auto) 0.0 (0.0-0.2) /100WBC Sodium 140 (135-145) mmol/L Potassium 4.2 (3.3-5.1) mmol/L Chloride 109 H (96-108) mmol/L Carbon Dioxide 23 (22-29) mmol/L Anion Gap 12 (12-20) BUN 18 H (9-16) mg/dL Creatinine 1.15 (0.5-1.4) mg/dL Estim Creat Clear Calc 76.9 Estimated GFR > 60 Random Glucose 121 H (60-115) mg/dL Calcium 10.1 D (8.4-10.2) mg/dL Total Bilirubin 0.6 (0.0-1.0) mg/dL Direct Bilirubin 0.1 (0.0-0.5) mg/dL AST 18 (5-37) U/L ALT 23 (0-40) U/L Alkaline Phosphatase 86 (39-117) U/L Total Protein 7.4 (6.5-8.0) g/dL Albumin 5.1 H (3.5-5.0) g/dL Lipase 26 (8-78) U/L Urine Color Urine Appearance Urine pH (5.0-9.0) Ur Specific [place] (1.005-1.025) Urine Protein (Neg-Trace) mg/dL Urine Glucose (UA) (Negative) mg/dL Urine Ketones (Negative) mg/dL Urine Blood (Negative) Urine Nitrite (Negative) Ur Leukocyte Esterase (Negative) Influenza Type A (PCR) NEGATIVE (Negative) Influenza Type B (PCR) NEGATIVE (Negative) RSV RNA Qual (PCR) NEGATIVE (Negative) SARS-CoV-2 RNA (RT-PCR) NEGATIVE (Negative) 12/02/22 Range/Units 17:40 WBC (4.8-10.8) X10*3/uL RBC (4.60-5.80) X10*6/uL Hgb (14.0-18.0) g/dl Hct (42.0-52.0) % MCV (80.0-98.0) fL MCH (27.0-33.0) pg MCHC (31.0-36.0) g/dl RDW (11.0-16.0) % Plt Count (160-400) X10*3/uL MPV (9.4-12.4) fL Immature Gran % (Auto) (0.0-0.4) % Neut % (Auto) (45-73) % Lymph % (Auto) (20-40) % [place] % (Auto) (2-11) % Eos % (Auto) (0-4) % Baso % (Auto) (0-2) % Lymph # (Auto) (1.2-4.9) X10*3/uL [place] # (Auto) (0.1-1.2) X10*3/uL Eos # (Auto) (0.0-0.4) X10*3/uL Baso # (Auto) (0.0-0.2) X10*3/uL Abs Immat Gran (auto) (0.00-0.03) X10*3/uL Absolute Neuts (auto) (2.0-8.3) x10*3/uL Absolute Nucleated RBC (0.0-0.012) X10*3/uL Nucleated RBC % (auto) (0.0-0.2) /100WBC Sodium (135-145) mmol/L Potassium (3.3-5.1) mmol/L Chloride (96-108) mmol/L Carbon Dioxide (22-29) mmol/L Anion Gap (12-20) BUN (9-16) mg/dL Creatinine (0.5-1.4) mg/dL Estim Creat Clear Calc Estimated GFR Random Glucose (60-115) mg/dL Calcium (8.4-10.2) mg/dL Total Bilirubin (0.0-1.0) mg/dL Direct Bilirubin (0.0-0.5) mg/dL AST (5-37) U/L ALT (0-40) U/L Alkaline Phosphatase (39-117) U/L Total Protein (6.5-8.0) g/dL Albumin (3.5-5.0) g/dL Lipase (8-78) U/L Urine Color Yellow Urine Appearance Clear Urine pH 7.5 (5.0-9.0) Ur Specific [place] 1.025 (1.005-1.025) Urine Protein Trace (Neg-Trace) mg/dL Urine Glucose (UA) Negative (Negative) mg/dL Urine Ketones Negative (Negative) mg/dL Urine Blood Negative (Negative) Urine Nitrite Negative (Negative) Ur Leukocyte Esterase Negative (Negative) Influenza Type A (PCR) (Negative) Influenza Type B (PCR) (Negative) RSV RNA Qual (PCR) (Negative) SARS-CoV-2 RNA (RT-PCR) (Negative) <VICKY Jaramillo - Last Filed: 12/02/22 18:58> External Record Review External record reviewed: Outpatient record, Prior outpatient labs and Prior outpatient radiology <VICKY Jaramillo - Last Filed: 12/02/22 18:58> Tests considered The following testing was considered but not selected: considered CT scan however deferred given nontender abd <VICKY Jaramillo - Last Filed: 12/02/22 18:58> Prescription Management I considered prescription management with: Antibiotic <VICKY Jaramillo - Last Filed: 12/02/22 18:58> Chronic Conditions Patient?s care impacted by: Other (anxiety/depression) <VICKY Jaramillo - Last Filed: 12/02/22 18:58> Critical Care Time Critical Care Time Critical Care Time: No <VICKY Jaramillo - Last Filed: 12/02/22 18:58> Discharge Plan Discharge Clinical Impression: Abdominal pain <Cele Sandy NP - Last Filed: 12/02/22 17:06> Patient Disposition: Home, Self-Care <Cele Sandy NP - Last Filed: 12/02/22 17:06> Instructions: Abdominal Pain (ED) <Cele Sandy NP - Last Filed: 12/02/22 17:06> Additional Instructions: Your lab workup was unremarkable. Your urine test was negative today. We sent tests for Gonorrhea and Chlyamadia - we won't get the results for a few days so you were treated. We will call you IF you test positive Take the prescribed oral antibiotic as directed Rest and drink plenty of fluids Stick to a bland diet while you are not feeling well. Follow up with your doctor. Recommend following up with the local [facility] for additional testing If you develop new or worsening symptoms call 911 or come back to the ER for further evaluation. <Cele Sandy NP - Last Filed: 12/02/22 17:06> Prescriptions: New doxycycline hyclate 100 mg tablet 100 mg PO BID Qty: 14 0RF No Action hydroxyzine HCl 25 mg tablet 25 mg PO BID PRN (Reason: anxiety) Qty: 14 0RF omeprazole 40 mg capsule,delayed release(DR/EC) 40 mg PO DAILY 30 Days Qty: 30 0RF doxycycline hyclate 100 mg tablet 100 mg PO BID clindamycin phosphate 1 % lotion topical BID sertraline 50 mg tablet 50 mg PO DAILY trazodone 100 mg tablet 100 mg PO BEDTIME sertraline 25 mg tablet 25 mg PO DAILY trazodone 50 mg tablet 50 mg PO BEDTIME <Cele Sandy NP - Last Filed: 12/02/22 17:06>
[2022-12-02 17:03] VITALS: BP 142/86; PULSE 99; RESP 18; TEMP 37.2; O2SAT 100; BMI 23.0
[2022-12-02 17:16] LABS: MANUAL DIFF FLAG NO
[2022-12-02 17:18] LABS: Basophils Absolute Auto 0.1 X10*3/uL (0.0-0.2); Basophils Percent Auto 0.4 % (0-2); Eosinophils Absolute Auto 0.2 X10*3/uL (0.0-0.4); Eosinophils Percent Auto 1.1 % (0-4); Hematocrit 47.9 % (42.0-52.0); Hemoglobin 16.6 g/dl (14.0-18.0); Imm Gran Abs Auto 0.04 X10*3/uL (0.00-0.03); Imm Gran Pct Auto 0.3 % (0.0-0.4); Lymphocytes Absolute Auto 4.4 X10*3/uL (1.2-4.9); Lymphocytes Percent Auto 31.3 % (20-40); Mean Corpuscular HGB Conc 34.7 g/dl (31.0-36.0); Mean Corpuscular Hemoglobin 28.7 pg (27.0-33.0); Mean Corpuscular Volume 82.7 fL (80.0-98.0); Mean Platelet Volume 10.6 fL (9.4-12.4); Monocytes Percent Auto 7.3 % (2-11); Neutrophils Absolute Auto 8.3 x10*3/uL (2.0-8.3); Neutrophils Percent Auto 59.6 % (45-73); Platelet Count 302 X10*3/uL (160-400); Red Blood Count 5.79 X10*6/uL (4.60-5.80); Red Cell Distribution Width 12.2 % (11.0-16.0); White Blood Count 13.9 X10*3/uL (4.8-10.8)
[2022-12-02 17:52] LABS: Alanine Aminotransferase 23 U/L (0-40); Albumin Level 5.1 g/dL (3.5-5.0); Alkaline Phosphatase 86 U/L (39-117); Anion Gap 12 (12-20); Aspartate Amino Transferase 18 U/L (5-37); Bilirubin Direct 0.1 mg/dL (0.0-0.5); Bilirubin Total 0.6 mg/dL (0.0-1.0); Blood Urea Nitrogen 18 mg/dL (9-16); Calcium 10.1 mg/dL (8.4-10.2); Carbon Dioxide 23 mmol/L (22-29); Chloride 109 mmol/L (96-108); Creatinine Clr Calc Pharmacy 76.9; Estimated Glomerular Filt Rate > 60; Glucose Random 121 mg/dL (60-115); Lipase 26 U/L (8-78); Potassium 4.2 mmol/L (3.3-5.1); Sodium 140 mmol/L (135-145); Total Protein 7.4 g/dL (6.5-8.0)
[2022-12-02 18:09] LABS: Influenza A PCR NEGATIVE (Negative); Influenza B PCR NEGATIVE (Negative); Resp Syncy Virus RNA Qual PCR NEGATIVE (Negative); SARS COV2 PCR INHOUSE NEGATIVE (Negative)
[2022-12-02 18:50] LABS: Appearance Urine Clear; Color Urine Yellow; Glucose Urine UA Negative (Negative); Leukocyte Esterase Urine Negative (Negative); Nitrite Urine Negative (Negative); PH 7.5 (5.0-9.0); Specific Gravity - Urine 1.025 (1.005-1.025); Urine Blood Negative (Negative); Urine Ketones Negative (Negative); Urine Protein Trace mg/dL (Neg-Trace)
[2022-12-02] MEDS: cefTRIAXone sodium 250 MG, Lidocaine HCl 1 % MPF 0.9 ML IM (19:28)
--- NOTE | 2022-12-02 19:41 | PC.NURSE ---
pt medicated per order, verbalized understanding that he will be contacted with any positive lab results from todays visit. pt a&o x4 NAD on discharge
[2022-12-03 09:24] LABS: CT PCR NOT DETECTED (Not Detect.); NG PCR NOT DETECTED (Not Detect.)
== END 2022-12-02 19:43 | disposition home or self-care (01) ==
PROVIDERS: Nurse Practitioner Family; Emergency Provider Emergency Medicine; PCP Internal Medicine Geriatric Medicine
DX: R10.32 Left lower quadrant pain (principal); Z79.899 Other long term (current) drug therapy; Z20.822 Contact with and (suspected) exposure to COVID-19; Z20.828 Contact with and (suspected) exposure to other viral communicable diseases; Z20.2 Contact with and (suspected) exposure to infections with a predominantly sexual mode of transmission
CPT/HCPCS: 0241U; 0353U; 80048; 80076; 81003; 83690; 85025; 96372; 99282; 99284; J0696

== ENCOUNTER 2023-11-03 15:01 | Outpatient (AMB) | payer OTHER, SELFPAY ==
--- NOTE | 2023-11-03 15:02 | A.OFFVIS_ITS ---
Intake Vital Signs 11/03/23 15:09 Height 5 ft 3 in Weight 120 lb BMI 21.3 BP 135/74 Blood Pressure Location Rt brachial Position Sitting Pulse 90 Intake Visit Reasons: skin cyst middle of back Intake Note: This patient was referred by Dr. Aguilar for an assessment for skin cyst middle of back. Present for 2yrs. Patient c/o; itchy at times, pinching nerve sensation. Denies bleeding, oozing. Tail Ripper Required: No Accompanied by: Self / Same As Patient Allergies No Known Allergies [No Known Allergies*] Allergy (Verified 11/03/23 15:07) Medication List - Last Reviewed 11/03/23 by PAIGE John clindamycin phosphate 1% topical BID doxycycline hyclate 100 mg PO BID doxycycline hyclate 100 mg PO BID hydroxyzine HCl 25 mg PO BID PRN omeprazole 40 mg PO DAILY 30 days sertraline 50 mg PO DAILY sertraline 25 mg PO DAILY trazodone 100 mg PO BEDTIME trazodone 50 mg PO BEDTIME HPI skin cyst middle of back HPI Details 28-year-old male referred for a cyst on the back. He says that he has had this for about 2 years. He says that this has been bothering him because of discomfort. He denies any drainage. He thinks that this may have increase in size little bit. [facility] Medical History Epidermal cyst Anxiety Depression Hip abductor tendonitis Social History Alcohol intake: never Patient Tobacco Use Status: Never used Tobacco Physical Exam Back/Spine/Pelvis Other: Cystic induration, about 5 mm in size on the mid back, with punctum Assessment & Plan Assessment & Plan (1) Epidermal cyst: Code(s): L72.0 - Epidermal cyst Plan: I explained to him the technique of excision. I reviewed the risks including but not limited to bleeding, infections and poor healing, as well as the benefits and alternatives. He has given consent and wants to proceed because of the discomfort with the cyst. This will be done as an office procedure under local anesthesia. Plan lternatives. Coding Level of Care Code New Pt Level 3 (37000) Diagnoses Epidermal cyst L72.0
[2023-11-03 15:09] VITALS: BP 135/74; PULSE 90; BMI 21.3
== END 2023-11-03 15:16 | disposition home or self-care (01) ==
PROVIDERS: PCP Internal Medicine Geriatric Medicine; Visit Provider Surgery
DX: L72.0 Epidermal cyst (principal)
CPT/HCPCS: 99203

== ENCOUNTER → 2023-11-03 15:01 | Outpatient (BNVA) | payer OTHER, SELFPAY | PROVIDERS: PCP Internal Medicine Geriatric Medicine; Visit Provider Surgery | DX: L72.0 Epidermal cyst (principal) | CPT/HCPCS: 99202 ==

== ENCOUNTER 2023-11-14 13:35 | Outpatient (AMB) | payer OTHER, SELFPAY ==
--- NOTE | 2023-11-14 14:21 | A.OFFVIS_ITS ---
Intake Vital Signs 11/14/23 14:22 Height 5 ft 3 in Weight 119 lb 0.794 oz BMI 21.1 Respiration 16 Pulse 72 Intake Visit Reasons: Exc skin cyst middle of back Intake Note: Patient is seen for office procedure, excision of skin cyst middle of back. Pt c/o: here for office procedure Account Service Associate Required: No Accompanied by: Self / Same As Patient Allergies No Known Allergies [No Known Allergies*] Allergy (Verified 11/14/23 14:22) HPI Exc skin cyst middle of back HPI Details He here for removal of a cyst from the back. [facility] Medical History Epidermal cyst Anxiety Depression Hip abductor tendonitis Social History Alcohol intake: never Patient Tobacco Use Status: Never used Tobacco Physical Exam Vital Signs: Last Vital Signs Pulse 72 11/14/23 14:22 Resp 16 11/14/23 14:22 BMI result Body Mass Index 21.1 Office Procedures Excision Details: He was in prone position. There was note of a cystic induration with a punctum on the back, measuring about 1 cm in diameter. This area was prepped and draped. Lidocaine 1% was used for local anesthesia. I made an elliptical incision around this using a blade 15. This was carried down through the full- thickness of the skin and subcutaneous fat to excise this entire indurated area. This incision was closed with full-thickness nylon 3-0 interrupted sutures. Dressings were applied. Procedure was completed. He tolerated procedure well. There were no immediate complications. He will be seen in the office for removal sutures in about 2 weeks. 40269-[id number]/arms/legs 0.6-1cm Procedure code (CPT) selection complete Assessment & Plan Assessment & Plan (1) Epidermal cyst: Code(s): L72.0 - Epidermal cyst Plan: Excision was done in the office. He was given wound care instructions. Coding Level of Care Code Procedure Only Diagnoses Epidermal cyst L72.0 CPT Codes Trunk/Arms/Legs - CPT: 62728-ahxnf/arms/legs 0.6-1cm ([id number])
[2023-11-14 14:22] VITALS: PULSE 72; RESP 16; BMI 21.1
== END 2023-11-14 14:19 | disposition home or self-care (01) ==
PROVIDERS: PCP Internal Medicine Geriatric Medicine; Visit Provider Surgery
DX: L72.0 Epidermal cyst (principal)
CPT/HCPCS: 11401

== ENCOUNTER 2023-11-14 13:35 | Outpatient (REF) | payer OTHER, SELFPAY | END 2023-11-14 13:36 | disposition home or self-care (01) | LOC: HO.LNP 13:35 | PROVIDERS: PCP Internal Medicine Geriatric Medicine; Visit Provider Surgery | DX: L72.0 Epidermal cyst (principal) | CPT/HCPCS: 11401; 88304 ==

== ENCOUNTER → 2023-11-28 13:34 | Outpatient (BNVA) | payer OTHER, SELFPAY | PROVIDERS: PCP Internal Medicine Geriatric Medicine; Visit Provider Surgery | DX: L72.9 Follicular cyst of the skin and subcutaneous tissue, unspecified (principal); Z48.02 Encounter for removal of sutures | CPT/HCPCS: 99211 ==

== ENCOUNTER 2025-01-23 11:41 | Outpatient (REF) | payer OTHER, SELFPAY ==
--- OUTSIDE RECORDS SUMMARY | 2025-01-23 12:29 | XMS_ITS | Encounter Summary ---
Author Organization [employer] Address [address] [place] [address] Care Team Providers Care Hand Sole Sewer Name Role Phone Name, Ton COLE Primary Care Provider Encounter Details Date Type Department Care Team (Latest Contact Info) Description 01/23/2025 Travel Social History Tobacco Use Types Packs/Day Years Used Date Smoking Tobacco: Former Cigarettes Q uit: 2019 Smokeless Tobacco: Never Alcohol Use Standard Drinks/Week Comments Yes 0 (1 standard drink = 0.6 oz pur e alcohol) rarely Depression Answer Date Recorded Patient Health Questionnaire-9 Score 0 01/25/2023 Housing Stability Answer Date Recorded What is your housing situation today? I have [place] 06/27/[address] you li ve. Do you have problems with any of the following? None of the above 06/27/2023 Food Insecurity Answer Date Recorded Within the past 12 months, y ou worried that your food would run out before you got money to buy more: Never True 06/27/2023 Within the past 12 months,th e food you bought just didn't last and you didn't have enough money to get more: Never True 01/2023 Transportation Answer Date Recorded In the past 12 months, has l ack of transportation kept you from medical appts, meetings, work or from getting things needed for daily living? Yes, it has kept me from non-medical meetings, work, or getting things that I need 05/29/2023 Utilities Answer Date Recorded In the past 12 months, has t he electric, gas, oil or water company threatened to shut off services in your home? No 06/27/2023 Depression Answer Date Recorded Patient Health Questionnaire-2 Score 0 01/25/2023 Sex and Gender Information Value Date Recorded Sex Assigned at Male 06/21/2022 10:31 AM EDT Legal Sex Male 10:31 AM EDT Gender Identity Male 06/21/2022 10:31 AM EDT Sexual Orientation Bisexual 06/21/2022 10 :31 AM EDT documented as of this encounter Plan of Treatment Not on file documented as of this encounter Visit Diagnoses Not on filedocumented in this encounter Additional Health Concerns Assessment Noted Time PHQ-9 Depression Total Score: 0 01/26/20 23 3:35 PM EDT documented as of this encounter Care Teams Hand Sole Sewer Relationship Specialty Start Date End Date Name, MD [address] [place] [address] PCP - General Family Medicine 03/16/17 documented as of this encounter
[2025-01-23 14:38] LABS: CT PCR NOT DETECTED (Not Detect.); NG PCR NOT DETECTED (Not Detect.)
[2025-01-24 05:20] LABS: HBS Num1 39.87 mIU/mL (0-7.99); HBsAGNum1 0.36 S/CO (0.00-0.99); HIV AB/AG Nonreactive (Nonreactive); Hepatitis B Surface Antigen Negative (Negative); ~HepC Num1 0.15 S/CO (0.00-0.79); ~Hepatitis B Surface Antibody REACTIVE (Nonreactive); ~Hepatitis C Antibody Nonreactive (Nonreactive)
[2025-01-24 11:43] LABS: RPR Rapid Plasma Reagin NON-REACTIVE (NON-REACTIVE)
== END 2025-01-23 11:42 | disposition home or self-care (01) ==
LOC: HO.HHCL 11:41
PROVIDERS: Visit Provider Internal Medicine Geriatric Medicine
DX: Z20.2 Contact with and (suspected) exposure to infections with a predominantly sexual mode of transmission (principal)
CPT/HCPCS: 86592; 86706; 86803; 87340; 87389; 87491; 87591

== ENCOUNTER 2025-02-09 17:06 | Emergency (ER) | payer OTHER, SELFPAY ==
--- NOTE | ~2025-02-09 | XR_ITS ---
CLINICAL HISTORY: CP Chest X-ray, 2 Views COMPARISON: None FINDINGS: No consolidation. No pleural effusion. No pneumothorax. No cardiomegaly. No acute fracture. IMPRESSION: No acute findings. This document has been electronically signed by: Osmar Cueto MD on 02/09/2025 19:24:15
--- NOTE | 2025-02-09 17:10 | ED.GENADULT ---
HPI - General Adult General Chief complaint: General Medical Stated complaint: imflammation around the chest area? breathing fine Time Seen by Provider: 02/09/25 18:48 Related Data Home Medications ?Medication ?Instructions ?Recorded ?Confirmed clindamycin phosphate 1 % lotion topical BID 01/07/22 11/03/23 doxycycline hyclate 100 mg tablet 100 mg PO BID 01/07/22 11/03/23 sertraline 25 mg tablet 25 mg PO DAILY 01/07/22 11/03/23 sertraline 50 mg tablet 50 mg PO DAILY 01/07/22 11/03/23 trazodone 100 mg tablet 100 mg PO BEDTIME 01/07/22 11/03/23 trazodone 50 mg tablet 50 mg PO BEDTIME 01/07/22 11/03/23 Previous Rx's ?Medication ?Instructions ?Recorded hydroxyzine HCl 25 mg tablet 25 mg PO BID PRN anxiety #14 tabs 08/28/20 omeprazole 40 mg capsule,delayed 40 mg PO DAILY 30 days #30 caps 10/06/20 release doxycycline hyclate 100 mg tablet 100 mg PO BID #14 tabs 12/02/22 Allergies Allergy/AdvReac Type Severity Reaction Status Date / Time No Known Allergies (No Known Allergy Verified 02/09/25 17:21 Allergies*) [facility] Past Medical History Medical History Epidermal cyst Anxiety Depression Hip abductor tendonitis Surgical History H/O excision of epidermal inclusion cyst (~11/14/23) Social History Social History Alcohol intake: never Patient Tobacco Use Status: Never used Tobacco Advance Directives: Yes Advance Directives on File: Yes Advance Directives Date on File: 10/05/20 Do you have a plan to hurt others: No Plan Physical Exam ED Vital Signs: Vital Signs - 24 hr 02/09/25 17:17 02/09/25 18:00 Temperature 97.9 F 98.5 F Pulse Rate 95 66 Respiratory Rate 16 15 Blood Pressure 143/77 H 139/75 Pulse Oximetry 97 100 Oxygen Delivery Method Room Air Room Air BMI result Body Mass Index 26.6 Course Course Course Narrative: This is an RME: Additional HPI, ROS, PE not included below will be deferred to primary provider. RME assessment and note performed by: Mecca Armas PA-C This is a [id number] who presents to the ER with complaints of chest pressure x 3 days. Reports sxs are intermittent, lasts for several hours. Nonradiating. no recent travel, surgery, hospitalizations. No hx of cardiac problems, no family cardiac problems. Plan: Labs, EKG, cxr, further ER eval needed Medical Decision Making Lab Data 02/09/25 17:49 02/09/25 17:49 Labs: Lab Results 02/09/25 Range/Units 17:49 WBC 6.0 (4.8-10.8) X10*3/uL RBC 5.59 (4.60-5.80) X10*6/uL Hgb 16.3 (14.0-18.0) g/dl Hct 45.6 (42.0-52.0) % MCV 81.6 (80.0-98.0) fL MCH 29.2 (27.0-33.0) pg MCHC 35.7 (31.0-36.0) g/dl RDW 12.2 (11.0-16.0) % Plt Count 221 D (160-400) X10*3/uL MPV 10.5 (9.4-12.4) fL Immature Gran % (Auto) 0.2 (0.0-0.4) % Neut % (Auto) 50.1 (45-73) % Lymph % (Auto) 40.0 (20-40) % [place] % (Auto) 8.7 (2-11) % Eos % (Auto) 0.7 (0-4) % Baso % (Auto) 0.3 (0-2) % Lymph # (Auto) 2.4 (1.2-4.9) X10*3/uL [place] # (Auto) 0.5 (0.1-1.2) X10*3/uL Eos # (Auto) 0.0 (0.0-0.4) X10*3/uL Baso # (Auto) 0.0 (0.0-0.2) X10*3/uL Abs Immat Gran (auto) 0.01 (0.00-0.03) X10*3/uL Absolute Neuts (auto) 3.0 (2.0-8.3) x10*3/uL Absolute Nucleated RBC 0.000 (0.0-0.012) X10*3/uL Nucleated RBC % (auto) 0.0 (0.0-0.2) /100WBC Sodium 141 (135-145) mmol/L Potassium 3.7 (3.3-5.1) mmol/L Chloride 108 (96-108) mmol/L Carbon Dioxide 24 (22-29) mmol/L Anion Gap 13 (12-20) BUN 16 (9-16) mg/dL Creatinine 1.07 (0.5-1.4) mg/dL Estim Creat Clear Calc 81.2 Estimated GFR > 60 Random Glucose 123 H (60-115) mg/dL Calcium 10.0 (8.4-10.2) mg/dL Magnesium 2.1 (1.6-2.6) mg/dL Total Bilirubin 0.8 (0.0-1.0) mg/dL Direct Bilirubin 0.2 (0.0-0.5) mg/dL AST 27 (5-37) U/L ALT 31 (0-40) U/L Alkaline Phosphatase 73 (39-117) U/L Troponin I High Sens < 2.7 (<3.5-35.0) ng/L Total Protein 7.5 (6.5-8.0) g/dL Albumin 5.1 H (3.5-5.0) g/dL Influenza Type A (PCR) NEGATIVE (Negative) Influenza Type B (PCR) NEGATIVE (Negative) RSV RNA Qual (PCR) NEGATIVE (Negative) SARS-CoV-2 RNA (RT-PCR) NEGATIVE (Negative) Discharge Plan Discharge Clinical Impression: Chest pain Patient Disposition: Home, Self-Care Instructions: Chest Pain (ED) Prescriptions: No Action hydroxyzine HCl 25 mg tablet 25 mg PO BID PRN (Reason: anxiety) Qty: 14 0RF omeprazole 40 mg capsule,delayed release(DR/EC) 40 mg PO DAILY 30 Days Qty: 30 0RF doxycycline hyclate 100 mg tablet 100 mg PO BID Qty: 14 0RF doxycycline hyclate 100 mg tablet 100 mg PO BID clindamycin phosphate 1 % lotion topical BID sertraline 50 mg tablet 50 mg PO DAILY trazodone 100 mg tablet 100 mg PO BEDTIME sertraline 25 mg tablet 25 mg PO DAILY trazodone 50 mg tablet 50 mg PO BEDTIME Referrals: Name,MD Ton [Primary Care Provider, Internal Medicine] - 3 days Print Language: Armenian
[2025-02-09 17:17] VITALS: BP 143/77; PULSE 95; RESP 16; TEMP 36.6; O2SAT 97; BMI 26.6
--- NOTE | 2025-02-09 17:19 | ECG_ITS ---
Test Reason : CP Blood Pressure : */* mmHG Vent. Rate : 88 BPM Atrial Rate : 88 BPM P-R Int : 132 ms QRS Dur : 86 ms QT Int : 374 ms P-R-T Axes : 65 23 33 degrees QTcB Int : 452 ms Normal sinus rhythm with sinus arrhythmia Normal ECG When compared with ECG of 27-Aug-2020 20:03, No significant change was found Referred By: Mecca Armas Electronically Signed By: Wang Ochoa
--- NOTE | 2025-02-09 17:41 | MHC.EDTECH ---
EKG delay, EKG machine was being used on another patient nurse aware.
[2025-02-09 17:56] LABS: MANUAL DIFF FLAG NO
[2025-02-09 17:57] LABS: Basophils Percent Auto 0.3 % (0-2); Eosinophils Percent Auto 0.7 % (0-4); Hematocrit 45.6 % (42.0-52.0); Hemoglobin 16.3 g/dl (14.0-18.0); Imm Gran Abs Auto 0.01 X10*3/uL (0.00-0.03); Imm Gran Pct Auto 0.2 % (0.0-0.4); Lymphocytes Absolute Auto 2.4 X10*3/uL (1.2-4.9); Mean Corpuscular HGB Conc 35.7 g/dl (31.0-36.0); Mean Corpuscular Hemoglobin 29.2 pg (27.0-33.0); Mean Corpuscular Volume 81.6 fL (80.0-98.0); Mean Platelet Volume 10.5 fL (9.4-12.4); Monocytes Absolute Auto 0.5 X10*3/uL (0.1-1.2); Monocytes Percent Auto 8.7 % (2-11); Neutrophils Percent Auto 50.1 % (45-73); Platelet Count 221 X10*3/uL (160-400); Red Blood Count 5.59 X10*6/uL (4.60-5.80); Red Cell Distribution Width 12.2 % (11.0-16.0)
[2025-02-09 18:00] VITALS: BP 139/75; PULSE 66; RESP 15; TEMP 36.9; O2SAT 100
[2025-02-09 18:15] LABS: Alanine Aminotransferase 31 U/L (0-40); Albumin Level 5.1 g/dL (3.5-5.0); Alkaline Phosphatase 73 U/L (39-117); Anion Gap 13 (12-20); Aspartate Amino Transferase 27 U/L (5-37); Bilirubin Direct 0.2 mg/dL (0.0-0.5); Bilirubin Total 0.8 mg/dL (0.0-1.0); Blood Urea Nitrogen 16 mg/dL (9-16); Carbon Dioxide 24 mmol/L (22-29); Chloride 108 mmol/L (96-108); Creatinine Clr Calc Pharmacy 81.2; Estimated Glomerular Filt Rate > 60; Glucose Random 123 mg/dL (60-115); Magnesium 2.1 mg/dL (1.6-2.6); Potassium 3.7 mmol/L (3.3-5.1); Sodium 141 mmol/L (135-145); Total Protein 7.5 g/dL (6.5-8.0)
[2025-02-09 18:22] LABS: Troponin-I High Sensitivity < 2.7 ng/L (<3.5-35.0)
[2025-02-09 18:35] LABS: Influenza A PCR NEGATIVE (Negative); Influenza B PCR NEGATIVE (Negative); Resp Syncy Virus RNA Qual PCR NEGATIVE (Negative); SARS COV2 PCR INHOUSE NEGATIVE (Negative)
--- NOTE | 2025-02-09 18:59 | ED.GENADULT ---
HPI - General Adult General Chief complaint: General Medical Stated complaint: imflammation around the chest area? breathing fine Time Seen by Provider: 02/09/25 18:48 History of Present Illness HPI narrative: Patient is a 29-year-old male presents today with having a chest pain. Patient claims that he has inflammation to the middle part of his chest. It isn't an ongoing constantly all day. Denies any shortness of breath there is no diaphoresis. No history of diabetes no history of hypertension no history of [place] no family history of [place] no history of travel no leg swelling no history of blood clots. Patient is from home. Positive history of smoking. No history of other recreational drug use Related Data Home Medications ?Medication ?Instructions ?Recorded ?Confirmed clindamycin phosphate 1 % lotion topical BID 01/07/22 11/03/23 doxycycline hyclate 100 mg tablet 100 mg PO BID 01/07/22 11/03/23 sertraline 25 mg tablet 25 mg PO DAILY 01/07/22 11/03/23 sertraline 50 mg tablet 50 mg PO DAILY 01/07/22 11/03/23 trazodone 100 mg tablet 100 mg PO BEDTIME 01/07/22 11/03/23 trazodone 50 mg tablet 50 mg PO BEDTIME 01/07/22 11/03/23 Previous Rx's ?Medication ?Instructions ?Recorded hydroxyzine HCl 25 mg tablet 25 mg PO BID PRN anxiety #14 tabs 08/28/20 omeprazole 40 mg capsule,delayed 40 mg PO DAILY 30 days #30 caps 10/06/20 release doxycycline hyclate 100 mg tablet 100 mg PO BID #14 tabs 12/02/22 Allergies Allergy/AdvReac Type Severity Reaction Status Date / Time No Known Allergies (No Known Allergy Verified 02/09/25 17:21 Allergies*) Review of Systems Review of Systems: Positive chest pain Yes all other systems are reviewed and are negative PMFSH Past Medical History Attestation statement: The following information was validated with the patient. Medical History Epidermal cyst Anxiety Depression Hip abductor tendonitis Surgical History H/O excision of epidermal inclusion cyst (~11/14/23) Social History Social History Alcohol intake: never Patient Tobacco Use Status: Never used Tobacco Advance Directives: Yes Advance Directives on File: Yes Advance Directives Date on File: 10/05/20 Do you have a plan to hurt others: No Plan Physical Exam ED Vital Signs: Vital Signs - 24 hr 02/09/25 17:17 02/09/25 18:00 Temperature 97.9 F 98.5 F Pulse Rate 95 66 Respiratory Rate 16 15 Blood Pressure 143/77 H 139/75 Pulse Oximetry 97 100 Oxygen Delivery Method Room Air Room Air BMI result Body Mass Index 26.6 Appearance: Alert. Oriented X3. No acute distress. Eyes: Pupils equal, round and reactive to light. ENT: Pharynx normal. Neck: Normal inspection. Neck supple. No lymph nodes noted. No crepitus CVS: Normal heart rate and rhythm. Pulses normal. Normal S1 and S2 Respiratory: No respiratory distress. Breath sounds normal. No Wheezing. No rales Abdomen: Soft and nontender. No rigidity. No distention. good BS x4 Skin: Skin warm and dry. Normal skin color. Normal skin turgor. Extremities: No lower extremity edema. Neurovascular intact to all extremities. No Lacerations. No Rash Neuro: Oriented X 3. No motor deficit. No sensory deficit. Moving all extermities. No slurred speech Medical Decision Making Medical Decision Making [facility] Narrative: My interpretation patient's chest x-ray is grossly negative no pneumonia no pneumothorax. Patient's troponin was negative. My interpretation patient's EKG showed a sinus rhythm heart rate is 90 [place] QRS QTC normal no acute ST segment elevation noted. Chest pain was atypical. Patient otherwise well-appearing no distress. Differential Diagnosis Differential Diagnoses: The differential diagnosis associated with the presentation includes Pneumonia, ACS, pneumothorax Admission/Observation Consideration of admission/observation: Escalation of care including admission/observation considered Lab Data [facility] Lab Attestation statement: I reviewed the patient's lab results. 02/09/25 17:49 02/09/25 17:49 Labs: Lab Results 02/09/25 Range/Units 17:49 WBC 6.0 (4.8-10.8) X10*3/uL RBC 5.59 (4.60-5.80) X10*6/uL Hgb 16.3 (14.0-18.0) g/dl Hct 45.6 (42.0-52.0) % MCV 81.6 (80.0-98.0) fL MCH 29.2 (27.0-33.0) pg MCHC 35.7 (31.0-36.0) g/dl RDW 12.2 (11.0-16.0) % Plt Count 221 D (160-400) X10*3/uL MPV 10.5 (9.4-12.4) fL Immature Gran % (Auto) 0.2 (0.0-0.4) % Neut % (Auto) 50.1 (45-73) % Lymph % (Auto) 40.0 (20-40) % [place] % (Auto) 8.7 (2-11) % Eos % (Auto) 0.7 (0-4) % Baso % (Auto) 0.3 (0-2) % Lymph # (Auto) 2.4 (1.2-4.9) X10*3/uL [place] # (Auto) 0.5 (0.1-1.2) X10*3/uL Eos # (Auto) 0.0 (0.0-0.4) X10*3/uL Baso # (Auto) 0.0 (0.0-0.2) X10*3/uL Abs Immat Gran (auto) 0.01 (0.00-0.03) X10*3/uL Absolute Neuts (auto) 3.0 (2.0-8.3) x10*3/uL Absolute Nucleated RBC 0.000 (0.0-0.012) X10*3/uL Nucleated RBC % (auto) 0.0 (0.0-0.2) /100WBC Sodium 141 (135-145) mmol/L Potassium 3.7 (3.3-5.1) mmol/L Chloride 108 (96-108) mmol/L Carbon Dioxide 24 (22-29) mmol/L Anion Gap 13 (12-20) BUN 16 (9-16) mg/dL Creatinine 1.07 (0.5-1.4) mg/dL Estim Creat Clear Calc 81.2 Estimated GFR > 60 Random Glucose 123 H (60-115) mg/dL Calcium 10.0 (8.4-10.2) mg/dL Magnesium 2.1 (1.6-2.6) mg/dL Total Bilirubin 0.8 (0.0-1.0) mg/dL Direct Bilirubin 0.2 (0.0-0.5) mg/dL AST 27 (5-37) U/L ALT 31 (0-40) U/L Alkaline Phosphatase 73 (39-117) U/L Troponin I High Sens < 2.7 (<3.5-35.0) ng/L Total Protein 7.5 (6.5-8.0) g/dL Albumin 5.1 H (3.5-5.0) g/dL Influenza Type A (PCR) NEGATIVE (Negative) Influenza Type B (PCR) NEGATIVE (Negative) RSV RNA Qual (PCR) NEGATIVE (Negative) SARS-CoV-2 RNA (RT-PCR) NEGATIVE (Negative) Independent Interpretation I performed an independent interpretation of an: EKG (My interpretation patient's EKG showed a sinus rhythm heart rate was 90 [place] QRS QTC normal no acute ST segment elevation noted.) and Plain X-Ray Interpretation: My interpretation patient's chest x-ray is grossly negative Radiology Impression Discussion of test interpretation with radiology: I have reviewed the radiologist's reading. External Record Review External record reviewed: Office record and Outpatient record Chronic Conditions Smoking Social Determinants Patient?s care significantly limited by Social Determinants of Health including: Problems related to primary support group Discharge Plan Discharge Clinical Impression: Chest pain Patient Disposition: Home, Self-Care Instructions: Chest Pain (ED) Prescriptions: No Action hydroxyzine HCl 25 mg tablet 25 mg PO BID PRN (Reason: anxiety) Qty: 14 0RF omeprazole 40 mg capsule,delayed release(DR/EC) 40 mg PO DAILY 30 Days Qty: 30 0RF doxycycline hyclate 100 mg tablet 100 mg PO BID Qty: 14 0RF doxycycline hyclate 100 mg tablet 100 mg PO BID clindamycin phosphate 1 % lotion topical BID sertraline 50 mg tablet 50 mg PO DAILY trazodone 100 mg tablet 100 mg PO BEDTIME sertraline 25 mg tablet 25 mg PO DAILY trazodone 50 mg tablet 50 mg PO BEDTIME Referrals: Name,MD Ton [Primary Care Provider, Internal Medicine] - 3 days Print Language: [place]
[2025-02-09 19:37] VITALS: BP 130/70; PULSE 80; RESP 15; TEMP 36.7; O2SAT 100
[2025-02-09 19:44] VITALS: BP 130/70; PULSE 80; RESP 15; TEMP 36.7; O2SAT 100
== END 2025-02-09 19:46 | disposition home or self-care (01) ==
PROVIDERS: Physician Assistant Medical; Emergency Provider Emergency Medicine Emergency Medical Services; PCP Internal Medicine Geriatric Medicine
DX: R07.89 Other chest pain (principal); Z03.818 Encounter for observation for suspected exposure to other biological agents ruled out; F41.9 Anxiety disorder, unspecified; Z79.899 Other long term (current) drug therapy
CPT/HCPCS: 0241U; 71046; 80048; 80076; 83735; 84484; 85025; 93005; 99283; 99284

== ENCOUNTER → 2025-02-09 17:19 | Outpatient (BNV) | payer OTHER, SELFPAY | PROVIDERS: Emergency Provider Emergency Medicine Emergency Medical Services; PCP Internal Medicine Geriatric Medicine; Visit Provider Internal Medicine Cardiovascular Disease | DX: R07.9 Chest pain, unspecified (principal) | CPT/HCPCS: 93010 ==

== ENCOUNTER → 2025-02-09 17:19 | Outpatient (BNV) | payer OTHER, SELFPAY | PROVIDERS: Emergency Provider Emergency Medicine Emergency Medical Services; PCP Internal Medicine Geriatric Medicine; Visit Provider Radiology Diagnostic Radiology | DX: R07.9 Chest pain, unspecified (principal) | CPT/HCPCS: 71046 ==